=== PATIENT | female | born 1970 | race Caucasian/White ===

== ENCOUNTER 2016-12-03 23:36 | Emergency (ER) | payer MEDICAID, OTHER ==
[2016-12-03 23:42] VITALS: BP 112/74; PULSE 102; RESP 18; TEMP 98.6; O2SAT 99
--- NOTE | 2016-12-04 00:20 | EDPHY ---
H & P Time Seen by Provider: 12/04/16 00:13 HPI/ROS: CHIEF COMPLAINT: Leg laceration HISTORY OF PRESENT ILLNESS: This is a 45-year-old female presenting to the emergency department, patient states she was in her bathroom and dropped a glass container with bath salts hitting her left lower leg. Laceration to right lower leg, no other injuries. Ambulatory without gait disturbance. Patient reports tetanus vaccine up-to-date REVIEW OF SYSTEMS: Constitutional: No fever, no chills. Eyes: No discharge. ENT: No sore throat. Musculoskeletal: No back pain. Right lower leg pain with laceration Skin: No rashes. Neurological: No headache or dizziness Past Medical/Surgical History: Denies any past medical history Smoking Status: Light smoker Physical Exam: General Appearance: Alert and no distress. Eyes: Pupils equal and round no injection. Respiratory: Nonlabored respiratory effort Neurological: AAO x3, no focal deficits. Ambulatory without gait disturbance Musculoskeletal: Neck full range of motion. Right lower anterior 2 cm laceration noted bleeding controlled positive CMS intact Extremities: full range of motion and are nontender. Skin: No rashes or lesions. Constitutional: Initial Vital Signs Temperature (C) 37.0 C 12/03/16 23:40 Heart Rate 102 H 12/03/16 23:40 Respiratory Rate 18 12/03/16 23:40 Blood Pressure 112/74 12/03/16 23:40 O2 Sat (%) 99 12/03/16 23:40 O2 Delivery Mode Room Air Allergies/Adverse Reactions: metronidazole Allergy (Intermediate, Verified 12/03/16 23:42) RASH/HIVES Sulfa (Sulfonamide Antibiotics) Allergy (Intermediate, Verified 12/03/16 23:42) IRRITATED SKIN gluten [Gluten] Allergy (Unknown, Verified 12/03/16 23:42) soy Allergy (Unknown, Verified 12/03/16 23:42) DAIRY Allergy (Unknown, Uncoded 12/03/16 23:42) EGGS Allergy (Unknown, Uncoded 12/03/16 23:42) Home Medications: Medication Instructions Recorded Citalopram [celeXA 20 MG (RX)] 20 mg PO DAILY #20 tab 11/25/11 Seroquel Unk 04/03/13 Supplements Unk 04/03/13 Zolpidem Tartrate [Ambien] 05/04/17 Medical Decision Making Procedures: Procedure: Laceration repair. Verbal consent was obtained from the patient. 2 cm laceration with flap on the right anterior lower leg. 0.5 bupivacaine with epi 3 mL local infiltrate. The wound was irrigated. There were no deep structures involved, no foreign body. The wound was repaired using 5-0 Ethilon 5 sutures placed. The procedure was performed by myself.Patient tolerated procedure. A dressing was applied by our EMT. ED Course/Re-evaluation: Discussed the plan of care: Wound irrigation and suture placement 0100: Discussed discharge instructions with patient, wound care discharge home- --> stable Differential Diagnosis: Other differential diagnosis considered but not limited to foreign body, soft tissue infection and puncture wound Departure - Departure Disposition: Home, Routine, Self-Care Clinical Impression: Leg laceration Qualifiers: Encounter type: initial encounter Laterality: right Qualified Code(s): S81.811A - Laceration without foreign body, right lower leg, initial encounter Condition: Good Instructions: Care For Your Stitches (ED), Laceration (ED) Additional Instructions: Discussed discharge instructions 1. Keep wound clean and dry 2. Have sutures removed in 10 days. Monitor for any signs infection redness, red streaks and pus 3. You can take ibuprofen as needed 600mg every 6-8 hours 4. No vogt water or river water exposure as this can increase her chances for infection Referrals: Kacy Vo PA [Primary Care Provider] - As per Instructions
== END 2016-12-04 01:00 | disposition home or self-care (01) ==
PROC: 0HQKXZZ Repair Right Lower Leg Skin, External Approach (ICD-10-PCS; principal; 2016-12-03)
DX: S81.811A Laceration without foreign body, right lower leg, initial encounter (principal); F17.200 Nicotine dependence, unspecified, uncomplicated; W25.XXXA Contact with sharp glass, initial encounter

== ENCOUNTER → 2016-12-16 | Outpatient (CLI) | payer MEDICAID | LOC: FIMAGING 11:21 | PROVIDERS: ATTEND Physician Assistant | DX: R92.0 Mammographic microcalcification found on diagnostic imaging of breast (principal); N60.11 Diffuse cystic mastopathy of right breast; N60.12 Diffuse cystic mastopathy of left breast; N60.02 Solitary cyst of left breast; R59.0 Localized enlarged lymph nodes | CPT/HCPCS: G0204 ==

== ENCOUNTER → 2016-12-30 | Day surgery (SDC) | payer MEDICAID ==
[~2016-12-30] MED LIST: BUPIVACAINE 0.5% 10 ML SDV ONE; LIDO/EPI 1% **Not for Epidural 20 ML MDV ONE; LIDOCAINE 1% 300 MG/30 ML SDV ONE; THROMBIN (BOVINE) 5,000 UNIT VIAL TP ONE
== END | disposition home or self-care (01) ==
LOC: FIMAGING 07:07
PROVIDERS: ATTEND Radiology Diagnostic Radiology
PROC: 0HBU3ZX Excision of Left Breast, Percutaneous Approach, Diagnostic (ICD-10-PCS; principal; 2016-12-30)
DX: C50.812 Malignant neoplasm of overlapping sites of left female breast (principal); Z17.0 Estrogen receptor positive status [ER+]
CPT/HCPCS: G0206

== ENCOUNTER → 2017-01-27 | Outpatient (CLI) | payer MEDICAID ==
[~2017-01-27] MED LIST changes: -BUPIVACAINE 0.5% 10 ML SDV ONE; +GADOBUTROL 10 ML VIAL IVP ONE; -LIDO/EPI 1% **Not for Epidural 20 ML MDV ONE; -LIDOCAINE 1% 300 MG/30 ML SDV ONE; -THROMBIN (BOVINE) 5,000 UNIT VIAL TP ONE
== END ==
LOC: FIMAGING 12:05
PROVIDERS: ATTEND Internal Medicine Hematology & Oncology
DX: C50.412 Malignant neoplasm of upper-outer quadrant of left female breast (principal)
CPT/HCPCS: 0159T; A9585; C8908

== ENCOUNTER 2017-03-19 07:04 | Day surgery (SDC) | payer MEDICAID ==
--- NOTE | 2017-03-19 07:14 | PDHPUP ---
History & Physical Update H&P update statement: This history and physical update is based on an assessment of the patient which was completed after admission or registration (within 24 hours), but prior to the surgery/procedure. H&P update: H&P reviewed & patient examined, no change in patient's condition since H&P completed
[2017-03-19] MEDS ORDERED: LR 1,000 ML IV ONE (07:32)
[2017-03-19] MEDS ORDERED: LIDOCAINE 1% 2 ML INJ ID PRN (07:32)
[2017-03-19] MEDS ORDERED: LIDOCAINE 1% 2 ML INJ ONE (07:38)
--- NOTE | 2017-03-19 07:53 | PDANEPAE ---
ANE History of Present Illness 46 year old female who presents for left mastectomy and sentinel lymph node biopsy. ANE Past Medical History - Cardiovascular History Hx Hypertension: No Hx Arrhythmias: No Hx Chest Pain: No Hx Coronary Artery / Peripheral Vascular Disease: No Hx CHF / Valvular Disease: No Hx Palpitations: No - Pulmonary History Hx COPD: No Hx Asthma/Reactive Airway Disease: No Hx Recent Upper Respiratory Infection: No Hx Oxygen in Use at Home: No Hx Sleep Apnea: No Sleep Apnea Screening Result - Last Documented: Negative - Neurologic History Hx Cerebrovascular Accident: No Hx Seizures: No Hx Dementia: No - Endocrine History Hx Diabetes: No Hyperthyroid: No Obesity: no Endocrine History Comment: Patient has a history of hypothyroidism years ago, was previously on Pork Thyroid, but discontinued this many years ago. - Renal History Hx Renal Disorders: No - Liver History Hx Hepatic Disorders: No - Neurological & Psychiatric Hx Hx Neurological and Psychiatric Disorders: Yes Neurological / Psychiatric History Comment: DEPRESSION AND ANXIETY. ADD - Cancer History Hx Cancer: Yes Cancer History Comment: BREAST DX 11/2016 - Congenital Disorder History Hx Congenital Disorders: No - GI History Hx Gastrointestinal Disorders: No - Chronic Pain History Chronic Pain: No - Surgical History Prior Surgeries: LT ANKLE HARDWARE REMVL 07/2013. LT ANKLE ORIF ANE Review of Systems Review of systems is: negative - Exercise capacity Exercise capacity: >=4 METS METS (RN): 5 METS ANE Patient History - Allergies Allergies/Adverse Reactions: metronidazole Allergy (Intermediate, Verified 12/03/16 23:42) RASH/HIVES Sulfa (Sulfonamide Antibiotics) Allergy (Intermediate, Verified 12/03/16 23:42) IRRITATED SKIN gluten [Gluten] Allergy (Unknown, Verified 12/03/16 23:42) soy Allergy (Unknown, Verified 12/03/16 23:42) DAIRY Allergy (Unknown, Uncoded 12/03/16 23:42) EGGS Allergy (Unknown, Uncoded 12/03/16 23:42) - Home Medications Home medications: home medication list seen and reviewed Home Medications: Zolpidem Tartrate [Ambien] HS 12/03/16 [Last Taken Unknown] Citalopram [celeXA 20 MG (RX)] 20 mg PO HS 03/18/17 [Last Taken Unknown] LORAZEPAM HS 03/18/17 [Last Taken Unknown] Nuvigil DAILY06 03/18/17 [Last Taken Unknown] - NPO status NPO Status: no food or drink >8 hours - Anes Hx Anes Hx: no prior problems - Smoking Hx Smoking Status: Light smoker ANE Labs/Vital Signs - Vital Signs Vital Signs: reviewed preoperatively; see RN documention for details Height: 161.29 cm Weight: 61.235 kg ANE Physical Exam - Airway Neck exam: FROM Mallampati Score: Class 2 Mouth exam: normal dental/mouth exam - Pulmonary Pulmonary: no respiratory distress - Cardiovascular Cardiovascular: regular rate and rhythym - ASA Status ASA Status: II ANE Anesthesia Plan Anesthesia Plan: general endotracheal anesthesia Total IV Anesthesia: No
[2017-03-19] MEDS ORDERED: MIDAZOLAM 2 MG/2 ML VIAL IVP ONE (07:55)
[2017-03-19] MEDS ORDERED: SCOPOLAMINE HYDROBROMIDE 1.5 MG PATCH TD SCH (08:00)
[2017-03-19] MEDS ORDERED: BUPIVACAINE 0.5% 30 ML SDV ONE (08:07)
[2017-03-19] MEDS ORDERED: THROMBIN (BOVINE) 20,000 UNIT SPRAY TP ONE (08:07)
[2017-03-19] MEDS ORDERED: PROPOFOL 200 MG/20 ML VIAL ONE (08:19)
[2017-03-19] MEDS ORDERED: fentaNYL 100 MCG/2 ML INJ ONE ×2 (08:19→11:19)
[2017-03-19] MEDS ORDERED: ROCURONIUM 50 MG/5 ML VIAL ONE (08:20)
[2017-03-19] MEDS ORDERED: DEXAMETHASONE 4 MG/ML VIAL ONE (08:20)
[2017-03-19] MEDS ORDERED: ONDANSETRON 4 MG/2 ML VIAL ONE (08:20)
[2017-03-19] MEDS ORDERED: LIDOCAINE 2% 5 ML SDV ONE (08:20)
[2017-03-19] MEDS ORDERED: ceFAZolin 2 GM/DEXTROSE 100 ML IV ONE (08:30)
[2017-03-19] MEDS ORDERED: MIDAZOLAM 2 MG/2 ML VIAL ONE (09:02)
[2017-03-19] MEDS ORDERED: HYDROmorphONE/DILAUDID 1 MG/ML SYR IVP PRN (09:08)
[2017-03-19] MEDS ORDERED: ONDANSETRON 4 MG/2 ML VIAL IVP PRN (09:08)
[2017-03-19] MEDS ORDERED: HYDROCODONE/APAP 5/325 TAB PO PRN (09:08)
[2017-03-19] MEDS ORDERED: NALOXONE HCL 0.4 MG/ML INJ IVP PRN (09:08)
[2017-03-19] MEDS ORDERED: LR 500 ML IV PRN (09:08)
[2017-03-19] MEDS ORDERED: epHEDrine SULFATE 10 MG/ML SYR ONE (09:47)
[2017-03-19] MEDS ORDERED: SUGAMMADEX SODIUM 200 MG/2 ML VIAL IVP ONE (10:03)
[2017-03-19] MEDS ORDERED: KETOROLAC 30 MG/1 ML SDV ONE (10:08)
--- NOTE | 2017-03-19 11:04 | POSTOPPROG ---
Post Op Note Date of Operation: 03/19/17 Surgeon: Mary Noel Credit Control Manager: kasie Anesthesiologist: altaf Anesthesia: GET(General Endotracheal) Pre-op Diagnosis: l breast cancer Post-op Diagnosis: same Indication: 46yo F with left breast cancer Procedure: L mastectomy with axillary dissection Findings: + SLN Inf/Abcess present in the surg proc area at time of surgery?: No Depth: Deep Incisional (Fascial) EBL: Minimal Drains: Joseph Bess
[2017-03-19] MEDS: fentaNYL 100 MCG/2 ML INJ IVP PRN ×2 (11:23→11:45)
[2017-03-19 11:34] VITALS: TEMP 97
[2017-03-19] MEDS ORDERED: CEPACOL LOZENGE PO ONE (11:57)
[2017-03-19] MEDS ORDERED: HYDROCODONE/APAP 5/325 TAB ONE (12:01)
[2017-03-19 12:55] VITALS: BP 99/77; PULSE 64; RESP 17; O2SAT 95
--- NOTE | 2017-03-19 13:11 | POSTANESTH ---
Post Anesthetic Evaluation Cardiovascular Status: Normal, Stable Respiratory Status: Normal, Stable Level of Consciousness/Mental Status: Can Participate in Eval Pain Control: Adequate, Prn Tx Ordered Nausea/Vomiting Control: Adequate, Prn Tx Ordered Complications Possibly Related to Anesthesia: None Noted
--- NOTE | 2017-03-19 23:07 | GOP ---
[f rep st] OPERATIVE REPORT DATE OF OPERATION: 03/19/2017 SURGEON: Mary Noel MD DANCE COACH: Tracee Abraham PA-C ANESTHESIA: General. ANESTHESIOLOGIST: Dr. Morris. PREOPERATIVE DIAGNOSIS: Left breast invasive ductal breast cancer. POSTOPERATIVE DIAGNOSIS: Left breast invasive ductal breast cancer. PROCEDURE PERFORMED: Left mastectomy with left axillary dissection. FINDINGS: Concord lymph nodes positive. SPECIMENS: 1. Left mastectomy short superior long lateral. 2. Concord lymph node. 3. Non sentinel lymph node. 4. Axillary contents ESTIMATED BLOOD LOSS: 25 cc. INDICATIONS: The patient is a 46-year-old woman who was found to have invasive ductal carcinoma of her left breast. She presents for mastectomy. DESCRIPTION OF PROCEDURE: The patient was taken to the operating room, placed supine on the operating table, and general anesthesia was administered. Her left breast and axilla were prepped and draped in the usual sterile fashion. I made an ellipse around the nipple areolar complex. I created superior inferior skin flaps. The dissection occurred at the clavicle, sternum, inframammary fold , and the axillary line. I removed the breast, including the pectoralis fascia. It was marked short superior and long lateral, and submitted to Pathology. I used a gamma probe to identify the sentinel lymph nodes in the axilla. I first encountered a large lymph node and I exposed it. It was not very hot. I passed this off the field. I continued my dissection into the axillary space and identified the hot sentinel lymph node. It was excised and submitted to Pathology for frozen. Both nodes returned widely positive for metastatic cancer. I then performed an axillary dissection, being careful to protect the axillary vein, thoracodorsal nerve bundle, and the long thoracic nerve. This tissue was submitted to Pathology for permanent. Hemostasis was achieved in both the breast as well as the axillary cavity. A 15 round silicone drain was placed in the axilla as well as the mastectomy site. They were sutured in place with 3-0 nylon. The chest incision was closed with 3-0 Vicryl followed by 4-0 Monocryl, followed by Steri-Strips, and a sterile dressing. She was awakened in the operating room, extubated, transferred to PACU in stable condition. /[id number]/MODL MTDD
[2017-03-20] MEDS ORDERED: PATCH REMOVAL 1 EA PATCH TD ONE (07:55)
[2017-03-22] MEDS ORDERED: PATCH REMOVAL 1 EA PATCH TD SCH (07:55)
== END 2017-03-19 13:06 | disposition home or self-care (01) ==
LOC: FSGY 07:04
PROVIDERS: ATTEND Surgery
PROC: 0HBU0ZZ Excision of Left Breast, Open Approach (ICD-10-PCS; principal; 2017-03-19 09:30)
PROC: 07B60ZX Excision of Left Axillary Lymphatic, Open Approach, Diagnostic (ICD-10-PCS; principal; 2017-03-19 09:30)
DX: C50.912 Malignant neoplasm of unspecified site of left female breast (principal); C77.3 Secondary and unspecified malignant neoplasm of axilla and upper limb lymph nodes
CPT/HCPCS: 19304; 38525; 78195; A9520; J0690; J1100; J1885; J2250; J2405; J2704; J3010

== ENCOUNTER → 2017-04-04 | Outpatient (CLI) | payer MEDICAID | LOC: FIMAGING 10:45 | PROVIDERS: ATTEND Internal Medicine Hematology & Oncology | DX: C50.919 Malignant neoplasm of unspecified site of unspecified female breast (principal) | CPT/HCPCS: A9585 ==

== ENCOUNTER → 2017-04-19 | Outpatient (CLI) | payer MEDICAID | LOC: BRMIMAGING 10:55 | PROVIDERS: ATTEND Internal Medicine Hematology & Oncology | DX: Z13.820 Encounter for screening for osteoporosis (principal); M81.0 Age-related osteoporosis without current pathological fracture; Z85.3 Personal history of malignant neoplasm of breast; Z82.62 Family history of osteoporosis ==

== ENCOUNTER 2017-05-07 08:03 | Day surgery (SDC) | payer MEDICAID ==
--- NOTE | 2017-05-03 15:07 | GHP ---
[f rep st] PREOP HISTORY AND PHYSICAL DATE OF ADMISSION: 05/07/2017 DATE OF SURGERY: 05/07/2017. CHIEF COMPLAINT: Breast cancer. HISTORY OF PRESENT ILLNESS: The patient is a 46-year-old woman who was recently diagnosed with left breast invasive ductal carcinoma. She underwent left mastectomy with sentinel lymph node biopsy. Fi nal pathology revealed invasive ductal carcinoma with lobular features. The sentinel lymph node was positive for metastatic carcinoma. Ten out of 11 lymph nodes from an axillary dissection were positiv e for metastatic carcinoma. She healed well from her mastectomy. She was seen by her oncologist, Dr. Pearson, who recommended chemotherapy and genetic testing. Her genetic testing showed unknown varia nce of both AIMEE and BRCA mutations. Her PET-CT was negative. She has decided to proceed with chemot herapy and would need a port for IV access. PAST MEDICAL HISTORY: Breast cancer, as above. Depression with anxiety. PAST SURGICAL HISTORY: Left mastectomy with axillary lymph node dissection. MEDICATIONS: Gabapentin, Ambien, citalopram. ALLERGIES: No known drug allergies. SOCIAL HISTORY: She works as a technical artist. She denies tobacco, alcohol or recreational drug use. She has a daughter. FAMILY MEDICAL HISTORY: None significant. REVIEW OF SYSTEMS: Ten-point review of systems negative, aside from HPI. PHYSICAL EXAMINATION: GENERAL: Well-developed, well-nourished woman in no acute distress. HEENT: Normocephalic, atraumatic. No hearing deficits. Pupils equal and round. No scleral icterus. Mucou s membranes moist. NECK: Trachea midline. RESPIRATORY: Clear to auscultation bilaterally. No inc reased work or breathing. CARDIOVASCULAR: Regular rate and rhythm. No peripheral edema. SKIN: Wa rm and dry. CHEST: Left mastectomy site well healed. PSYCH: Mood and affect normal. NEURO: Erick sly intact. IMPRESSION AND PLAN: The patient is a 46-year-old woman with a left breast invasive ductal carcinoma , with 10 out of 11 positive lymph nodes. She will require a port for chemotherapy. We discussed ri sks of surgery, including, but not limited to, heart attack, stroke, blood clots or . We discus sed risk of infection, bleeding, pneumothorax. She understands that if the port ever becomes infecte d, it would need to be removed. She understands the risks and would like to proceed. She was additi onally seen by Dr. Mary Noel, who agrees to the above impression and plan. /[id number]/MODL
[2017-05-07] MEDS ORDERED: ceFAZolin 2 GM/DEXTROSE 100 ML IV ONE (08:24)
[2017-05-07] MEDS ORDERED: LR 1,000 ML IV ONE (08:25)
[2017-05-07] MEDS ORDERED: LIDOCAINE 1% 2 ML INJ ID PRN (08:25)
[2017-05-07 08:31] VITALS: PULSE 62
[2017-05-07] MEDS ORDERED: SCOPOLAMINE HYDROBROMIDE 1 MG/3 DAYS PATCH TD ONE (09:00)
[2017-05-07] MEDS ORDERED: BUPIVACAINE 0.25% 30 ML SDV ONE (10:11)
[2017-05-07] MEDS ORDERED: BUPIVACAINE 0.5% 30 ML SDV ONE (10:12)
[2017-05-07] MEDS ORDERED: MIDAZOLAM 2 MG/2 ML VIAL ONE (10:42)
[2017-05-07] MEDS ORDERED: MIDAZOLAM 2 MG/2 ML VIAL IVP ONE (10:44)
--- NOTE | 2017-05-07 10:45 | PDANEPAE ---
ANE History of Present Illness Patient presents for port placement ANE Past Medical History - Cardiovascular History Hx Hypertension: No Hx Arrhythmias: No Hx Chest Pain: No Hx Coronary Artery / Peripheral Vascular Disease: No Hx CHF / Valvular Disease: No Hx Palpitations: No - Pulmonary History Hx COPD: No Hx Asthma/Reactive Airway Disease: No Hx Recent Upper Respiratory Infection: No Hx Oxygen in Use at Home: No Hx Sleep Apnea: No Sleep Apnea Screening Result - Last Documented: Negative - Neurologic History Hx Cerebrovascular Accident: No Hx Seizures: No Hx Dementia: No - Endocrine History Hx Diabetes: No Endocrine History Comment: Patient has a history of hypothyroidism years ago, was previously on Pork Thyroid, but discontinued this many years ago. No problems after maintaining allergy diet. - Renal History Hx Renal Disorders: No - Liver History Hx Hepatic Disorders: No - Neurological & Psychiatric Hx Hx Neurological and Psychiatric Disorders: Yes Neurological / Psychiatric History Comment: DEPRESSION AND ANXIETY. ADD - Cancer History Hx Cancer: Yes Cancer History Comment: BREAST DX 11/2016 - Congenital Disorder History Hx Congenital Disorders: No - GI History Hx Gastrointestinal Disorders: No - Other Health History Other Health History: Lyrica for neuralgic pain radiating down L arm. - Chronic Pain History Chronic Pain: No - Surgical History Prior Surgeries: L mastectomy,sent lymph node dissection 03-19-17. LT ANKLE HARDWARE REMVL 07/2013. LT ANKLE ORIF ANE Review of Systems Review of Systems: - Exercise capacity METS (RN): 4 METS ANE Patient History - Allergies Allergies/Adverse Reactions: metronidazole Allergy (Intermediate, Verified 05/04/17 13:47) RASH/HIVES Sulfa (Sulfonamide Antibiotics) Allergy (Intermediate, Verified 05/04/17 13:47) IRRITATED SKIN gluten [Gluten] Allergy (Unknown, Verified 05/04/17 13:47) soy Allergy (Unknown, Verified 05/04/17 13:47) DAIRY Allergy (Unknown, Uncoded 12/03/16 23:42) EGGS Allergy (Unknown, Uncoded 12/03/16 23:42) - Home Medications Home medications: home medication list seen and reviewed Home Medications: Zolpidem Tartrate [Ambien] HS 12/03/16 [Last Taken 03/18/17 23:00] Citalopram [celeXA 20 MG (RX)] 20 mg PO HS 03/18/17 [Last Taken 03/18/17 22:00] Nuvigil DAILY06 03/18/17 [Last Taken 03/18/17] clonazePAM [CLONAZEPAM] 0.5 mg PO 03/19/17 [Last Taken 03/18/17 22:00] LYRICA 05/04/17 [Last Taken Unknown] Stool Softener 05/04/17 [Last Taken Unknown] - NPO status NPO Status: no food or drink >8 hours NPO Since - Liquids (Date): 05/07/17 NPO Since - Liquids (Time): 05:55 NPO Since - Solids (Date): 05/06/17 NPO Since - Solids (Time): 20:00 - Anes Hx Anes Hx: no prior problems - Smoking Hx Smoking Status: Former smoker ANE Labs/Vital Signs - Vital Signs Blood Pressure: 98/61 Heart Rate: 62 Respiratory Rate: 18 O2 Sat (%): 100 Height: 161.29 cm Weight: 57.606 kg ANE Physical Exam - Airway Neck exam: FROM Mallampati Score: Class 2 Mouth exam: normal dental/mouth exam - Pulmonary Pulmonary: no respiratory distress - Cardiovascular Cardiovascular: regular rate and rhythym - ASA Status ASA Status: II ANE Anesthesia Plan Anesthesia Plan: GA w LMA (rba discussed)
[2017-05-07] MEDS ORDERED: LIDOCAINE 2% 5 ML SDV ONE (10:48)
[2017-05-07] MEDS ORDERED: fentaNYL 100 MCG/2 ML INJ ONE (10:48)
[2017-05-07] MEDS ORDERED: PROPOFOL 200 MG/20 ML VIAL ONE (10:48)
[2017-05-07] MEDS ORDERED: fentaNYL 100 MCG/2 ML INJ IVP PRN (11:26)
[2017-05-07] MEDS ORDERED: NALOXONE HCL 0.4 MG/ML INJ IVP PRN (11:26)
[2017-05-07] MEDS ORDERED: ONDANSETRON 4 MG/2 ML VIAL IVP PRN (11:26)
[2017-05-07] MEDS ORDERED: LR 500 ML IV PRN (11:26)
[2017-05-07] MEDS ORDERED: DEXAMETHASONE 4 MG/ML VIAL ONE (11:29)
[2017-05-07] MEDS ORDERED: ONDANSETRON 4 MG/2 ML VIAL ONE (11:29)
--- NOTE | 2017-05-07 11:39 | POSTOPPROG ---
Post Op Note Date of Operation: 05/07/17 Surgeon: Mary Noel Anesthesiologist: christa Anesthesia: GET(General Endotracheal) Pre-op Diagnosis: breast cancer Post-op Diagnosis: breast cancer Indication: 46 yo with breast cancer Procedure: R IJ power port Inf/Abcess present in the surg proc area at time of surgery?: No Specimen(s): NONE
[2017-05-07 12:01] VITALS: TEMP 97.7
--- NOTE | 2017-05-07 12:24 | GOP ---
[f rep st] OPERATIVE REPORT DATE OF OPERATION: 05/07/2017 SURGEON: Mary Noel MD ANESTHESIA: General. ANESTHESIOLOGIST: Niles Zayas MD PREOPERATIVE DIAGNOSIS: Left breast cancer. POSTOPERATIVE DIAGNOSIS: Left breast cancer. PROCEDURE PERFORMED: Right ultrasound-guided PowerPort placement. FINDINGS: Tip in the SVC-RA junction. SPECIMENS: None. ESTIMATED BLOOD LOSS: 10 cc. INDICATIONS: The patient is a 46-year-old woman who has breast cancer. She will be undergoing chemo therapy. DESCRIPTION OF PROCEDURE: Patient was brought into the operating room, placed supine on the table, a nd general anesthesia was administered. Her bilateral neck and chest were prepped and draped in the usual sterile fashion. She was placed in the Trendelenburg position. Infiltrated all sites with 0.5 % Marcaine prior to making incisions. I used the ultrasound to identify her internal jugular vein. I accessed it with return of blood flow. I threaded the guidewire, which appeared to be very midline and curling. I was concerned I was in the azygos, so I re-accessed the internal jugular vein. This time it passed freely into the IVC. A pocket was created to accommodate the port in the right chest . I tunneled the catheter up to the insertion site. Under fluoroscopy, I measured the catheter and cut it to size. Using the Seldinger technique, I placed a dilator and sheath over the wire. I remov ed the wire and the dilator. I threaded the catheter through the sheath and peeled away the sheath. Placement was confirmed with fluoroscopy. The port withdrew blood easily and was flushed with hepar in. The pocket was closed with 0 Vicryl followed by 4-0 Monocryl. The neck incision was closed with 4-0 Monocryl. Dermabond applied. Since she is having chemo this afternoon, I then re-accessed the port with good return of blood flow. I placed a sterile dressing. She was awakened in the operating room, extubated, and transferred to PACU in stable condition. /[id number]/MODL
[2017-05-07 12:58] VITALS: RESP 16; O2SAT 98
[2017-05-07 13:39] VITALS: BP 102/53
[2017-05-07] MEDS ORDERED: HYDROCODONE/APAP 5/325 TAB PO ONE (13:45)
== END 2017-05-07 13:39 | disposition home or self-care (01) ==
LOC: FSGY 08:03
PROVIDERS: ATTEND Surgery
PROC: 05HM33Z Insertion of Infusion Device into Right Internal Jugular Vein, Percutaneous Approach (ICD-10-PCS; principal; 2017-05-07 09:45)
DX: C50.912 Malignant neoplasm of unspecified site of left female breast (principal)
CPT/HCPCS: C1788; J0690; J1100; J1642; J2250; J2405; J2704; J3010

== ENCOUNTER → 2017-09-01 | Day surgery (SDC) | payer MEDICAID | LOC: FIMAGING 10:40 | PROVIDERS: ATTEND Surgery | PROC: 02HV33Z Insertion of Infusion Device into Superior Vena Cava, Percutaneous Approach (ICD-10-PCS; principal; 2017-09-01) | PROC: 0JHD3WZ Insertion of Totally Implantable Vascular Access Device into Right Upper Arm Subcutaneous Tissue and Fascia, Percutaneous Approach (ICD-10-PCS; principal; 2017-09-01) | DX: C50.412 Malignant neoplasm of upper-outer quadrant of left female breast (principal) | CPT/HCPCS: 36571; 77001; C1751 ==

== ENCOUNTER → 2018-05-04 | Outpatient (CLI) | payer MEDICAID | LOC: FIMAGING 11:05 | PROVIDERS: ATTEND Internal Medicine Hematology & Oncology | DX: M85.80 Other specified disorders of bone density and structure, unspecified site (principal); M25.552 Pain in left hip; Z85.3 Personal history of malignant neoplasm of breast | CPT/HCPCS: 78306; A9503 ==

== ENCOUNTER → 2018-06-09 | Outpatient (CLI) | payer MEDICAID | LOC: FIMAGING 15:12 | PROVIDERS: ATTEND Internal Medicine Hematology & Oncology | DX: M76.02 Gluteal tendinitis, left hip (principal); M76.01 Gluteal tendinitis, right hip; R60.9 Edema, unspecified; M51.36 Other intervertebral disc degeneration, lumbar region | CPT/HCPCS: A9585 ==

== ENCOUNTER 2019-01-02 09:55 | Emergency (ER) | payer MEDICAID | END 2019-01-02 10:26 | disposition home or self-care (01) ==

== ENCOUNTER → 2019-01-20 | Outpatient (CLI) | payer MEDICAID | LOC: FIMAGING 14:13 ==